=== PATIENT | male | born 1960 | race Caucasian/White ===

== ENCOUNTER 2016-10-27 09:35 | Day surgery (SDC) | payer BC ==
[2016-10-23 10:53] VITALS: BMI 31.9
[~2016-10-27 09:35] MED LIST: LACTATED RINGERS 1,000 ML IV SCH
[2016-10-27 09:56] VITALS: RESP 18; TEMP 98.4
[2016-10-27] MEDS ORDERED: PROPOFOL 10 MG/ML 20 ML VIAL IV ONE (10:32)
[2016-10-27] MEDS ORDERED: LIDOCAINE 1% INJ 10MG/ML (20 ML MDV) ONE (10:32)
--- NOTE | 2016-10-27 10:58 | P.PCN ---
Date of Procedure: 10/27/16 Procedure(s) Performed: Procedure: Esophagogastroduodenoscopy. Preoperative diagnosis: History of upper GI bleeding and history of esophageal varices. Postoperative diagnosis: 1. Esophageal varices appear well obliterated. 2. Resolution hemoclips from prior endoscopic intervention noted around the area of the GE junction. 3. No other significant finding of this exam in the esophagus, stomach or duodenum. Preparation and sedation: Were provided by anesthesia. Brief clinical history: The patient is a 55-year-old male who is referred for this evaluation for possible banding of esophageal varices. The patient has history of chronic hepatitis C viral infection and had an episode of upper GI bleeding last August when he was traveling on his job in the [employer] [facility] [employer] [facility]. Apparently he was hospitalized initially in [facility] where he was in coma for 6 days, he was then transferred to [facility] where he had banding of his esophageal varices. The patient has been doing well since that time. Procedure: With the patient on his left lateral decubitus position and after informed consent and adequate sedation, I passed the Olympus-GIF 160 video upper endoscope through the cricopharyngeus down the esophagus. The esophageal varices appeared well obliterated and there was no indication for further band ligation at this time. The esophagus appeared healthy with no erosions, ulcers or mucosal tears. The resolution hemoclips previously placed were noted at the level of the GE junction and those were better seen in the retroflex view in the cardia. The stomach and duodenum did not show any obvious abnormalities. No biopsies or other interventions were indicated. The patient tolerated the procedure well. Plan: The patient was reassured. He will follow up with you as planned and I recommended a repeat exam in one year.
[2016-10-27 11:38] VITALS: BP 106/64; PULSE 52
== END 2016-10-27 12:00 | disposition home or self-care (01) ==
LOC: ORWHC2ENDO 09:35
DX: Z87.19 Personal history of other diseases of the digestive system (principal); Z86.19 Personal history of other infectious and parasitic diseases; I10 Essential (primary) hypertension; F41.9 Anxiety disorder, unspecified; Z79.899 Other long term (current) drug therapy
CPT/HCPCS: 43235; J2001; J2704; 99153

== ENCOUNTER 2017-11-22 09:35 | Day surgery (SDC) | payer BC ==
[2017-11-19 08:24] VITALS: BMI 29.0
[~2017-11-22 09:35] MED LIST changes: +LIDOCAINE 1% 20 ML VIAL (10MG/ML) FOR IV START INTRADERMA PRN
[2017-11-22 10:00] VITALS: RESP 16; TEMP 96.8
[2017-11-22] MEDS ORDERED: LIDOCAINE 1% INJ 10MG/ML (20 ML MDV) ONE (10:34)
[2017-11-22] MEDS ORDERED: MIDAZOLAM 2 MG/2 ML VIAL ONE (10:34)
[2017-11-22] MEDS ORDERED: fentaNYL (PF) 50 MCG/ML 2 ML AMP ONE (10:34)
[2017-11-22] MEDS ORDERED: PROPOFOL 10 MG/ML 20 ML VIAL IV ONE (10:34)
[2017-11-22 11:03] VITALS: BP 114/74
--- NOTE | 2017-11-22 11:04 | P.PCN ---
Date of Procedure: 11/22/17 Procedure(s) Performed: Procedure: Esophagogastroduodenoscopy. Preoperative diagnosis: History of upper GI bleeding and history of esophageal varices. Postoperative diagnosis: 1. Esophageal varices appear well obliterated. 2. Resolution hemoclips from prior endoscopic intervention noted around the area of the GE junction as previously described. 3. Mild antral gastritis. Biopsies obtained from the antrum. Preparation and sedation: Were provided by anesthesia. Brief clinical history: The patient is a 56-year-old male who is scheduled for this evaluation for surveillance for esophageal varices. The patient has history of chronic hepatitis C viral infection and alcoholic liver disease and had an episode of upper GI bleeding August 2016 when he was traveling on his job in the [facility]. Apparently he was hospitalized initially in [facility] where he was in coma for 6 days, he was then transferred to [facility] where he had banding of his esophageal varices. The patient has been doing well since that time and has completed treatment for his hepatitis C virus infection. His upper endoscopy in October 2016 showed obliteration of the varices. Procedure: With the patient on his left lateral decubitus position and after informed consent and adequate sedation, I passed the Olympus-GIF 160 video upper endoscope through the cricopharyngeus down the esophagus. The esophageal varices appeared well obliterated and there was no indication for further band ligation at this time. The esophagus appeared healthy with no erosions, ulcers or mucosal tears. The resolution hemoclips previously placed were noted at the level of the GE junction and those were better seen in the retroflex view in the cardia. The stomach showed some mottling and erythema consistent with mild gastritis. Biopsies were obtained from the antrum. Duodenum did not show any obvious abnormalities. No interventions were indicated. The patient tolerated the procedure well. Plan: The patient was reassured. He will follow up with you as planned and I recommended a repeat exam in one to 2 years.
[2017-11-22 11:29] VITALS: PULSE 48
== END 2017-11-22 11:47 | disposition home or self-care (01) ==
LOC: ORWHC2ENDO 09:35
DX: K29.50 Unspecified chronic gastritis without bleeding (principal); B18.2 Chronic viral hepatitis C; K70.9 Alcoholic liver disease, unspecified; M19.90 Unspecified osteoarthritis, unspecified site; I10 Essential (primary) hypertension; F41.9 Anxiety disorder, unspecified; Z79.891 Long term (current) use of opiate analgesic; Z79.899 Other long term (current) drug therapy
CPT/HCPCS: 88305; 43239; J2250; J2001; J3010; J2704